=== PATIENT | female | born 1965 | race Caucasian/White ===

== ENCOUNTER → 2019-03-22 15:31 | Outpatient (CLI) | payer OTHER, SELFPAY ==
--- NOTE | ~2019-03-22 | XR_ITS ---
EXAMINATION: XR chest 2V EXAM DATE: 03/22/2019 15:52 INDICATION: Nonproductive cough. TECHNIQUE: Frontal and lateral projections of the chest obtained and reviewed. Comparison is made to prior examination from 10/05/2018. FINDINGS: The lungs are clear. There are no pleural effusions. The cardiomediastinal silhouette is within normal limits. There is no pneumothorax suspected. Patient has diffuse idiopathic skeletal h yperostosis (DISH). There are cholecystectomy clips. IMPRESSION: No acute cardiopulmonary findings. Reviewed, dictated and finalized at location B. 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
== END ==
PROVIDERS: PCP Family Medicine; Visit Provider Family Medicine
DX: J09.X2 Influenza due to identified novel influenza A virus with other respiratory manifestations (principal)
CPT/HCPCS: 71046

== ENCOUNTER 2020-02-23 15:53 | Outpatient (CLI) | payer OTHER, SELFPAY ==
[2020-02-23 16:10] LABS: Basophils Absolute Auto 0.1 K/mm3 (0.0-0.1); Basophils Percent Auto 0.5 % (0.2-1.2); Eosinophils Absolute Auto 0.3 K/mm3 (0-0.3); Hematocrit 39.3 % (37.0-47.0); Hemoglobin 13.2 g/dL (12.0-15.0); Immature Granulocyte Absolute 0.03 K/mm3 (0.00-0.031); Immature Granulocyte Percent A 0.2 % (0-0.5); Lymphocytes Absolute Auto 4.98 K/mm3 (0.9-3.2); Lymphocytes Percent Auto 38.9 % (18.3-44.2); Mean Corpuscular HGB Conc 33.6 g/dl (32-36); Mean Corpuscular Hemoglobin 29.9 pg (26-34); Mean Corpuscular Volume 89.1 fl (80-100); Mean Platelet Volume 9.4 fl (7.4-10.4); Monocytes Absolute Auto 0.7 K/mm3 (0.1-0.6); Monocytes Percent Auto 5.3 % (2.6-8.5); Neutrophils Absolute Auto 6.8 K/mm3 (1.3-6.7); Neutrophils Percent Auto 53.1 % (45.5-73.1); Platelet Count Result 243 k/mm3 (150-375); Red Blood Count 4.41 M/mm3 (4.2-5.4); Red Cell Distribution Width 13.2 % (11.5-14.5); White Blood Count 12.8 K/mm3 (4.5-10.0)
[2020-02-23 16:15] LABS: Atypical Lymphocytes Present; Platelet Estimate Adequate (Adequate)
[2020-02-23 16:39] LABS: Alanine Aminotransferase 17 U/L (4-35); Albumin Level 3.8 g/dL (3.5-5.1); Alkaline Phosphatase 104 U/L (38-126); Anion Gap 5 mmol/L (8-16); Aspartate Amino Transferase 21 U/L (14-36); Bilirubin,Total 0.3 mg/dL (0.2-1.3); Blood Urea Nitrogen 17 mg/dL (7-17); Calcium 8.8 mg/dL (8.4-10.2); Carbon Dioxide 28 mmol/L (22-30); Chloride 102 mmol/L (98-107); Estimated Glomerular Filt Rate 47; Glucose 96 mg/dL (65-105); Lactate Dehydrogenase 406 U/L (313-618); Potassium 4.2 mmol/L (3.4-5.0); Sodium 135 mmol/L (137-145)
== END 2020-02-23 15:54 | disposition home or self-care (01) ==
PROVIDERS: PCP Family Medicine; Visit Provider Internal Medicine Hematology & Oncology
DX: Z80.6 Family history of leukemia (principal); D64.89 Other specified anemias
CPT/HCPCS: 36415; 80053; 83615; 85025

== ENCOUNTER 2020-03-07 15:12 | Outpatient (CLI) | payer OTHER, SELFPAY ==
--- NOTE | ~2020-03-07 | US_ITS ---
EXAMINATION: US carotid duplex BI DATE: 03/07/2020 15:43 INDICATION: Carotid bruit. TECHNIQUE: Grayscale, color Doppler, and pulsed Doppler images of the cervical carotid arteries were obtained. The degree of vessel stenosis is placed in one of the following categories: normal, <50%, 5 0-69%, >=70% but less than near-occlusion, near-occlusion, or total occlusion. Note that percent sten osis relative to normal distal artery lumen diameter is indirectly measured from velocity measurement s as described by Andrés, et al. Radiology 2003; 229:340-346. COMPARISON: None. FINDINGS: RIGHT: The right common carotid artery (CCA) peak systolic velocity (PSV) is 112 cm/s. The right internal ca rotid artery (ICA) PSV is 123 cm/s. The right ICA end-diastolic velocity (EDV) is 56 cm/s. The right ICA/CCA PSV ratio is 1.1. Grayscale and color Doppler images yield an estimate of <50% diameter reduc tion from plaque in the ICA. There is antegrade flow in the right vertebral artery. LEFT: The left CCA PSV is 95 cm/s. The left ICA PSV is 124 cm/s. The left ICA EDV is 42 cm/s. The left ICA/ CCA PSV ratio is 1.3. Grayscale and color Doppler images yield an estimate of <50% diameter reduction from plaque in the ICA. There is antegrade flow in the left vertebral artery. IMPRESSION: 1. <50% stenosis in the right internal carotid artery. 2. <50% stenosis in the left internal carotid artery. Reviewed, dictated and finalized at location A. 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
== END 2020-03-07 15:13 | disposition home or self-care (01) ==
PROVIDERS: PCP Family Medicine; Visit Provider Family Medicine
DX: R09.89 Other specified symptoms and signs involving the circulatory and respiratory systems (principal); I65.23 Occlusion and stenosis of bilateral carotid arteries
CPT/HCPCS: 93880

== ENCOUNTER 2020-03-12 15:38 | Outpatient (CLI) | payer OTHER, SELFPAY ==
--- NOTE | ~2020-03-12 | MM_ITS ---
EXAMINATION: MM screening shira BI w malou HISTORY: Screening mammogram TECHNIQUE: Craniocaudal and mediolateral oblique 3-D tomosynthesis images were obtained and synthetic 2-D images were generated. CAD analysis was submitted and interpreted. COMPARISON: None, baseline BREAST PARENCHYMAL COMPOSITION: There are scattered areas of fibroglandular density. FINDINGS: There is no evidence of suspicious mass, calcification, or architectural distortion to sugg est malignancy in either breast. IMPRESSION: 1. No mammographic evidence of malignancy. 2. Recommend routine screening mammography in one year. BI-RADS Category 1: Negative Reviewed, dictated and finalized at location A. 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
== END 2020-03-12 15:39 | disposition home or self-care (01) ==
LOC: ANHIMG 15:45
PROVIDERS: PCP Family Medicine; Visit Provider Internal Medicine Hematology & Oncology
DX: Z12.31 Encounter for screening mammogram for malignant neoplasm of breast (principal)
CPT/HCPCS: 77063; 77067

== ENCOUNTER 2020-03-13 01:19 | Outpatient (CLI) | payer OTHER, SELFPAY ==
[2020-03-13 19:18] LABS: SARS-CoV-2 RNA PCR Negative
== END 2020-03-13 01:20 | disposition home or self-care (01) ==
LOC: ANHCOVIDDT 01:19
PROVIDERS: PCP Family Medicine; Visit Provider Internal Medicine Gastroenterology
DX: Z01.812 Encounter for preprocedural laboratory examination (principal); Z20.822 Contact with and (suspected) exposure to COVID-19
CPT/HCPCS: C9803; U0003; U0005

== ENCOUNTER 2021-01-04 10:16 | Emergency (ER) | payer OTHER, SELFPAY ==
[2021-01-04 10:23] VITALS: BP 148/82; PULSE 87; RESP 19; TEMP 36.9; O2SAT 99
--- NOTE | 2021-01-04 10:27 | ED.GENADULT ---
HPI - General Adult General Chief complaint: Back Pain/Injury Stated complaint: lower back pain Time Seen by Provider: 01/04/21 10:27 Source: patient Mode of arrival: ambulatory Limitations: no limitations History of Present Illness HPI narrative: 55-year-old female patient presents to the [facility] with complaints of right-sided lower back pain x3 days. Patient states that this past Thursday she was cleaning her house getting ready for Thanksgiving when she felt a pop to her lower back. Patient states she went to go and sit down to rest for little bit and states that when she got up she was having shooting pain down her right leg. Patient states she does have chronic back pain issues and degenerative disc disease. Patient states she did have some leftover Flexeril that she tried to take along with Tylenol and ibuprofen and has been using heat but feels like it is not getting any better. Denies loss of bowel or bladder control. Denies any numbness or tingling down the legs. Patient states that her back pain is better when sitting straight up with pillows behind it. Related Data Home Medications Medication Instructions Recorded Confirmed albuterol sulfate 90 mcg/actuation 1 inhalation INHALATION Q4-6H PRN 04/27/19 01/04/21 breath activated powder inhaler levothyroxine 150 mcg capsule 150 mcg PO DAILY 04/27/19 01/04/21 lisinopril 20 mg tablet 20 mg PO DAILY 04/27/19 01/04/21 Allergies Allergy/AdvReac Type Severity Reaction Status Date / Time amoxicillin Allergy Mild Rash Verified 01/04/21 10:33 Cephalosporins Allergy Mild Unknown Verified 01/04/21 10:33 ciprofloxacin [From Cipro] Allergy Mild Nausea Verified 01/04/21 10:33 codeine Allergy Mild Vomiting Verified 01/04/21 10:33 estradiol [From Femring] Allergy Mild Unknown Verified 01/04/21 10:33 famotidine Allergy Mild Nausea Verified 01/04/21 10:33 pregabalin [From Lyrica] Allergy Mild Unknown Verified 01/04/21 10:33 Penicillins Allergy Unknown unk Verified 01/04/21 10:33 DIAL SOAP Allergy Unknown RASH Uncoded 01/04/21 10:33 Review of Systems Review of Systems: CONSTITUTIONAL: Denies fever, chills, or sweats. EYES: Denies visual changes, redness, or discharge. ENT: Denies rhinorrhea, congestion, sore throat, or otalgia. CARDIOVASCULAR: Denies chest pain, palpitations, or edema. RESPIRATORY: Denies cough or dyspnea. GASTROINTESTINAL: Denies abdominal pain, nausea, vomiting, or diarrhea. GENITOURINARY: Denies dysuria or hematuria. SKIN: Denies rash or itching. MUSCULOSKELETAL: Positive low back pain, denies joint pain, or myalgia. NEUROLOGIC: Denies headache, numbness, or weakness. PSYCHIATRIC: Denies anxiety or depression. [facility] Past Medical History Medical History Acute anxiety Cervical spondylolysis Chronic low back pain Chronic maxillary sinusitis Diplopia Heart murmur Hyperlipidemia Hypothyroidism Lumbar disc disorder Surgical History Surgical History H/O thyroidectomy History of cholecystectomy History of hysterectomy Family History Family History Father Congestive heart failure (CHF) Diabetes mellitus Chronic obstructive lung disease Social History Social History Smoking packs per day: 1.5 Smoking cigarettes per day: 30.0 Years smoked: 30 Smoking pack-years: 45.00 Smoking status: Heavy tobacco smoker Tobacco type: cigarettes Alcohol intake: never Substance use: never Substance use type: does not use Spiritual care concerns: No Comments At the time of my signature I agree with nursing past medical history, surgical, social, and family history. There is no relevant family history pertinent to the presenting complaint. Exam Narrative: GENERAL: Well-appearing, well-nourished, and in no acute distress. HEAD: Normoc
== END 2021-01-04 10:45 | disposition home or self-care (01) ==
PROVIDERS: Emergency Provider Nurse Practitioner Family
DX: M54.31 Sciatica, right side (principal); F17.210 Nicotine dependence, cigarettes, uncomplicated; F41.9 Anxiety disorder, unspecified; M43.02 Spondylolysis, cervical region; R01.1 Cardiac murmur, unspecified; E78.5 Hyperlipidemia, unspecified; E89.0 Postprocedural hypothyroidism
CPT/HCPCS: 99213; G0463

== ENCOUNTER → 2021-01-24 09:22 | Outpatient (CLI) | payer OTHER, SELFPAY ==
--- NOTE | ~2021-01-24 | XR_ITS ---
EXAMINATION: XR shoulder RT min 2V EXAM DATE: 01/24/2021 09:51 INDICATION: pain, decreased mobility right shoulder x 5 weeks. TECHNIQUE: The following right shoulder projections obtained: frontal projection with internal rotati on, frontal projection with external rotation, Grashey, and axillary (4+ views). There is no prior s tudy for comparison. FINDINGS: No evidence of right shoulder rotator cuff calcific tendinosis. There is mild to moderate glenohumeral joint, mild to moderate acromioclavicular joint primary osteoarthritis. There are no ac alatna fractures or dislocations identified. There is no subcutaneous gas. The soft tissue is unremark able. There are no radiopaque foreign bodies. IMPRESSION: Mild to moderate osteoarthritis. Reviewed, dictated and finalized at location B. 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
== END ==
PROVIDERS: PCP Family Medicine; Visit Provider Family Medicine
DX: M19.011 Primary osteoarthritis, right shoulder (principal)
CPT/HCPCS: 73030

== ENCOUNTER 2021-02-04 10:08 | Outpatient (CLI) | payer OTHER, SELFPAY ==
--- NOTE | 2021-02-09 14:06 | WPDHOLTEREM ---
Holter/Event Monitor Holter/Event Monitor Date of procedure: 02/09/21 Holter/Event Procedure: 48 Hr Holter Monitor Diagnosis: Palpitations Indications: UA ramirez palpitations Image/Tracing Quality: Favorable Finding: The basic rhythm is sinus with borderline first-degree AV block. QRS and QT intervals are normal. Heart rate varies from a minimum of 61 to a maximum of 117 with a mean rate of 82. There were no abrupt pauses or abnormalities of AV conduction. The longest RR interval recorded was 1.2 seconds. Supraventricular ectopic activity consisted of infrequent PACs. There was 1 episode of a supraventricular tachycardia that lasted for 7 beats at 5:33 p.m. on the 1st day. This occurred with a wider QRS with right bundle branch block morphology. Upon termination in terminated with very short 1.2nd pause and then a junctional escape beat. No other atrial arrhythmias were seen there was no evidence of atrial fibrillation Ventricular ectopic activity was rare consisting of 4 single PVCs that were seen during the entire 48 hours. Patient submitted a diary which indicates there were apparently no symptoms Conclusion: 48 hour Holter monitor largely unremarkable 1 episode of 7 beats of SVT with right bundle branch block aberrancy noted on the 1st day as described above. Bob Vasquez MD [facility]
== END 2021-02-04 10:09 | disposition home or self-care (01) ==
PROVIDERS: PCP Family Medicine; Visit Provider Family Medicine
DX: R00.2 Palpitations (principal)
CPT/HCPCS: 93225; 93226

== ENCOUNTER → 2021-03-09 00:42 | Outpatient (CLI) | payer OTHER, SELFPAY ==
[2021-03-09 12:26] LABS: SARS-CoV-2 RNA PCR Negative
== END ==
PROVIDERS: PCP Family Medicine; Visit Provider Internal Medicine Gastroenterology
DX: Z01.812 Encounter for preprocedural laboratory examination (principal); Z20.822 Contact with and (suspected) exposure to COVID-19
CPT/HCPCS: C9803; U0003; U0005

== ENCOUNTER 2022-02-28 13:29 | Outpatient (CLI) | payer OTHER, SELFPAY ==
--- NOTE | ~2022-02-28 | CT_ITS ---
EXAMINATION: CT lung screening DATE: 02/28/2022 13:57 INDICATION: HX OF NICOTINE DEPENDENCE TECHNIQUE: Computed tomography (CT) of the chest was performed without intravenous contrast. Addition al 3D reconstructions utilizing coronal maximum intensity projection (MIP) were performed. Automated exposure control and iterative reconstruction technique were employed. The dose-length product was 73 .40 mGy-cm. COMPARISON: None FINDINGS: Mild emphysema. Small linear band of discoid atelectasis in the right middle lobe. Calcified nodule r ight middle lobe along with calcified right hilar and mediastinal lymph nodes consistent with old gra nulomatous disease. No other suspicious pulmonary nodules, pneumonia, pulmonary edema or pleural effu wilmar. Heart size is normal. Atherosclerotic coronary artery calcification. No pericardial effusion. T horacic aorta is normal in caliber. Likely prior right thyroidectomy with surgical clips at the thyro id fossa. 1 cm low-attenuation cyst versus hemangioma in the right hepatic lobe. A couple small calci fied splenic granuloma. There are bridging osteophytes at multiple levels in the spine, consistent wi th diffuse idiopathic skeletal hyperostosis (DISH). IMPRESSION: 1. Lung-RADS category 1: Negative. Continue annual screening with noncontrast low-dose chest CT in 12 months. Reviewed, dictated and finalized at location A. 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 Lung-RADS category 1: Negative. Continue annual screening with noncontrast l ow-dose chest CT in 12 months.
--- NOTE | ~2022-02-28 | US_ITS ---
EXAMINATION: US carotid duplex BI DATE: 02/28/2022 14:18 INDICATION: Carotid artery stenosis TECHNIQUE: Grayscale, color Doppler, and pulsed Doppler images of the cervical carotid arteries were obtained. The degree of vessel stenosis is placed in one of the following categories: normal, <50%, 5 0-69%, >=70% but less than near-occlusion, near-occlusion, or total occlusion. Note that percent sten osis relative to normal distal artery lumen diameter is indirectly measured from velocity measurement s as described by Andrés, et al. Radiology 2003; 229:340-346. COMPARISON: 03/07/2020 carotid duplex examination FINDINGS: RIGHT: The right common carotid artery (CCA) peak systolic velocity (PSV) is 127.2 cm/s. The right internal carotid artery (ICA) PSV is 118.6 cm/s. The right ICA end-diastolic velocity (EDV) is 34.0 cm/s. The right ICA/CCA PSV ratio is 0.9. Grayscale and color Doppler images yield an estimate of less than 50% diameter reduction from plaque in the ICA. The external carotid artery (ECA) PSV is 53.5 cm/s. There is antegrade flow in the right vertebral artery. LEFT: The left CCA PSV is 130.4 cm/s. The left ICA PSV is 151.2 cm/s. The left ICA EDV is 51.0 cm/s. The le ft ICA/CCA PSV ratio is 1.2. Grayscale and color Doppler images yield an estimate of less than 50% di ameter reduction from plaque in the ICA. The ECA PSV is 171.2 cm/s. There is antegrade flow in the le ft vertebral artery. IMPRESSION: 1. Less than 50% stenosis in the right internal carotid artery. 2. Less than 50% stenosis in the left internal carotid artery. Reviewed, dictated and finalized at Location A. Reviewed, dictated and finalized at location B. 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
== END 2022-02-28 13:30 | disposition home or self-care (01) ==
LOC: ANHIMG 13:38
PROVIDERS: PCP Family Medicine
DX: Z12.2 Encounter for screening for malignant neoplasm of respiratory organs (principal); F17.210 Nicotine dependence, cigarettes, uncomplicated; I65.23 Occlusion and stenosis of bilateral carotid arteries
CPT/HCPCS: 71271; 93880

== ENCOUNTER 2022-03-19 12:43 | Outpatient (CLI) | payer OTHER, SELFPAY ==
--- NOTE | 2022-03-19 | ECHO_ITS ---
Patient Info Name: Jenise Escalante Age: 56 years : 1965 Gender: Female Ht: 65 in Wt: 148 lbs BSA: 1.76 m2 HR: 63 bpm BP: 144 / 80 mmHg Heart Rhythm: Sinus Rhythm Exam Date: 03/19/2022 12:57 PM Exam Location: [facility] Patient Status: Outpatient Admit Date: 03/19/2022 Staff Ordering Physician: PHYSICIAN NOT ON STAFF, NONSTAFF Checker And Packer: Satish Cruz, JAVI, RT Attending Provider: PHYSICIAN NOT ON STAFF, NONSTAFF Exam Type: CA echo doppler color flow Study Info Indications - Carotid Bruit Complete two-dimensional, color flow and Doppler transthoracic echocardiogram is performed. Strain analysis performed. Summary 1. Complete two-dimensional, color flow and Doppler transthoracic echocardiogram is performed. 2. Left ventricular chamber dimension is normal. 3. Left ventricular systolic function is normal, estimated at 55-60%. 4. There is mildly increased left ventricular wall thickness. 5. The left ventricular diastolic function is grade I diastolic dysfunction. 6. Right ventricular systolic function is normal. 7. No significant valvular disease. Left Ventricle Left ventricular chamber dimension is normal. Left ventricular systolic function is normal, estimated at 55-60%. There is mildly increased left ventricular wall thickness. The left ventricular diastolic function is grade I diastolic dysfunction. Global longitudinal strain is abnormal at -16 %. Right Ventricle Right ventricular chamber dimension is normal. Right ventricular systolic function is normal. Left Atria Left atrial chamber dimension is normal. Right Atria Right atrial chamber dimension is normal. Atrial Septum Intact interatrial septum visualized by color flow imaging. Aortic Valve The aortic valve is not well visualized. There is no aortic valve stenosis. There is no aortic valve regurgitation. Pulmonic Valve The pulmonic valve is not well visualized. Mitral Valve There is no mitral valve stenosis. There is trace mitral valve regurgitation. Tricuspid Valve There is trace tricuspid valve regurgitation. Pericardium/Pleural There is trivial pericardial effusion. Inferior Vena Cava Normal inferior vena cava with >50% collapse upon inspiration consistent with normal right atrial pressure, 3 mmHg. Aorta The aortic root size at the sinus of Valsalva is normal. Left Ventricular Outflow Tract Name Value Normal LVOT 2D LVOT Diameter 2.0 cm LVOT Doppler LVOT Peak Gradient 3 mmHg LVOT Mean Gradient 1 mmHg LVOT VTI 15 cm LVOT VTI/AV VTI Ratio 0.5 LVOT Stroke Volume 49 ml LVOT CO 4.7 l/min LVOT CI 2.6 l/min/m2 Mitral Valve Name Value Normal MV Doppler
== END 2022-03-19 12:44 | disposition home or self-care (01) ==
LOC: ANHCARD 12:43
PROVIDERS: PCP Family Medicine
DX: R09.89 Other specified symptoms and signs involving the circulatory and respiratory systems (principal); R94.31 Abnormal electrocardiogram [ECG] [EKG]
CPT/HCPCS: 93306

== ENCOUNTER 2023-02-18 07:10 | Outpatient (RCR) | payer OTHER, SELFPAY ==
[2023-01-28 09:43] VITALS: BMI 26.6
--- NOTE | 2023-03-11 07:27 | PCWOUND ---
WOCN NOTE Patient called and left voicemail cancelling appointment for 03/11/23 as her wound to right lower leg is now closed.
== END 2023-04-13 09:17 | disposition home or self-care (01) ==
LOC: ANHWOC 07:10
PROVIDERS: PCP Family Medicine
DX: T24.201D Burn of second degree of unspecified site of right lower limb, except ankle and foot, subsequent encounter (principal)
CPT/HCPCS: 99213; 99214; A9270; G0463

== ENCOUNTER → 2023-06-10 09:22 | Outpatient (CLI) | payer OTHER, SELFPAY ==
--- NOTE | ~2023-06-10 | XR_ITS ---
Lumbosacral Spine: AP and lateral views Clinical History: Pain Findings: The normal lordotic curve is maintained. No fracture or subluxation seen in the lumbar spin e. Possible mild chronic wedging deformities of T8, T9, and T10. The intervertebral disc spaces are preserved. There are mild facet joint degenerative changes in the lumbar spine. DISH noted at the low er thoracic spine. The sacroiliac joints are normally outlined. Impression: No acute abnormality evident. Possible chronic anterior wedging deformities of T8, T9, and T10. Degenerative changes and DISH, as detailed above. Reviewed, dictated and finalized at location M. Impression: No acute abnormality evident. Possible chronic anterior wedging deformities of T8, T9, and T10. Degenerative changes and DISH, as detailed above.
== END ==
LOC: EXPCRAD 09:27
PROVIDERS: PCP Physician Assistant; Visit Provider Physician Assistant
DX: M54.50 Low back pain, unspecified (principal)
CPT/HCPCS: 72100

== ENCOUNTER 2023-08-12 12:26 | Outpatient (RCR) | payer OTHER, SELFPAY ==
--- NOTE | 2023-08-12 13:29 | OPREHPOC ---
Outpatient Therapy Plan of Care This is a Multidisciplinary Plan of Care that may contain components documented by all disciplines (PT, OT, and ST.) PT Problem 1 PT Problem #1 Knowledge Deficit PT Goal 1 Goal *indep with HEP--land and water exercises Target Visit 6 PT Problem 2 PT Problem #2 Pain PT Goal 1 Goal 1* pain rating at worst 5/10 2* Oswestry self rating of 20% limitation in activity 3* pt report walking 30 minute tolerance 4* pt report sleeping awaken due to pain 2x/night Target Visit 6 PT Problem 3 PT Problem #3 Impaired Strength PT Goal 1 Goal increase strength of trunk and hips, to improve stability to spine and positionin* mat strengthening exercises x 15 reps 2* perform 45 minutes of aquatic exercises 3* 2 minute walking test distance of 375' Target Visit 6
--- NOTE | 2023-08-12 13:29 | PTOPEVAL1 ---
Assessment and note entered by Nikole Wyman, PT Evaluation Information Diagnosis low back pain ICD-10 Condition Codes (PT) Pain in low back M54.50 Onset April 2023 Subjective Information chronic back pain, with gradual increase, no trauma or injury to back; xray: chronic wedge of T 8,9,10; mild facet joint degenerative changes-lumbar; previous PT- years ago- helped some, then hurt so bad could not get out of bed for a week had pain injections in back about 10 years ago, did not help; Activity: do not work outside of home; indep with self and light home tasks, frequent breaks due to pain; limited walking 20-30 min; Reported Pain Level Pain Score Self Report Additional Pain Score Comments pain range in the past week 2-09/18; achy R and L: constant in low back & lateral hips; cramps in calves radicular, intermittent into whole leg heavy into both heels; increase pain: moving, walking 20-30 min; bend forward, lifting, stairs and doing laundry decrease pain: sit/rest, tylenol arthritis heat and ice not really help; with sleeping awaken from pain and cramps in calves 3x/night Assessment PT Clinical Summary Shira has the diagnosis of low back pain. Pain is radicular - intermittent into both LE to heels, constant into both lateral hips. She reports issues with chronic back and neck pain. Oswestry self assessment rating of 28% limitation in activity level. Decreased walking, sleeping and activity tolerances due to pain. She does not work outside of the home. With the evaluation: stands with flat lumbar position; standing trunk extension and supine bridging increase pain; supine R hip flexion, IR and hamstring stretch-- increase pain; 2 minute walking test distance of 320' with pain increase from 3 to 6/10. Skilled PT services are indicated on land and in the water, to increase strength of trunk and hips and increase mobility of her hips and trunk, with education for HEP and pain management/control. Due to pain and pain inc
--- NOTE | 2023-08-21 10:28 | PCPTNOTE ---
Pt canceled appt stating she could not make it.
--- NOTE | 2023-09-02 15:34 | PTOPDC ---
Assessment and note entered by Nikole Wyman, PT Discharge Report Assessment Status Discharge - Pt Not Present Diagnosis low back pain ICD-10 Condition Codes (PT) Pain in low back M54.50 Onset April 2023 Subjective Information talked with the pt on the phone: she stated she has too much going on right now to come to therapy. Assessment PT Clinical Summary Jenise has received the PT evaluation. Then called and canceled 2 appointments. I talked with her on the phone today and she wants to cancel remaining appointments. Discussed with her that a new order would be required to return to PT. She stated she understood. Discharge PT per pt request. The goals were not addressed. Plan of Care PT Services Indicated No
== END 2023-09-02 16:24 | disposition home or self-care (01) ==
LOC: ANHPT 12:26
PROVIDERS: PCP Physician Assistant; Visit Provider Physician Assistant
DX: M54.50 Low back pain, unspecified (principal)
CPT/HCPCS: 97161; 97530

== ENCOUNTER 2023-12-19 15:00 | Emergency (ER) | payer OTHER, SELFPAY ==
--- NOTE | 2023-12-19 15:08 | ED.URI ---
HPI - URI/Sore Throat General Chief Complaint: Upper Respiratory Infection Stated Complaint: Sore Throat Time Seen by Provider: 12/19/23 15:31 Source: patient and RN notes reviewed Mode of arrival: ambulatory Limitations: no limitations History of Present Illness HPI Narrative: 58-year-old female with history of COPD, cigarette smoker your presents with concern for persistent cough, nasal drainage, productive cough. Reports cough is painful. Reports left ear pain. Denies fever, aches, chills, sweats. She has been using her albuterol. MD elicited complaint: cough Related Data Home Medications Medication Instructions Recorded Confirmed albuterol sulfate 90 mcg/actuation 1 inhalation inhalation Q4-6H PRN 04/27/19 01/28/23 breath activated powder inhaler Shortness Of Breath amlodipine 5 mg tablet 5 mg PO DAILY 02/27/21 01/28/23 hydroxyzine HCl 25 mg tablet 25 mg PO DAILY 02/27/21 01/28/23 losartan 50 mg tablet 50 mg PO DAILY 02/27/21 02/27/21 aspirin 81 mg tablet 81 mg PO DAILY 01/28/23 01/28/23 atorvastatin 40 mg tablet 40 mg PO DAILY 01/28/23 01/28/23 cholecalciferol (vitamin D3) 25 25 mcg PO DAILY 01/28/23 01/28/23 mcg (1,000 unit) tablet (Vitamin D3) levothyroxine 112 mcg tablet 112 mcg PO DAILY 01/28/23 01/28/23 Allergies Allergy/AdvReac Type Severity Reaction Status Date / Time amoxicillin Allergy Mild Rash Verified 12/19/23 15:13 Cephalosporins Allergy Mild Unknown Verified 12/19/23 15:13 ciprofloxacin [From Cipro] Allergy Mild Nausea Verified 12/19/23 15:13 codeine Allergy Mild Vomiting Verified 12/19/23 15:13 estradiol [From Femring] Allergy Mild Unknown Verified 12/19/23 15:13 famotidine Allergy Mild Nausea Verified 12/19/23 15:13 pregabalin [From Lyrica] Allergy Mild Unknown Verified 12/19/23 15:13 Penicillins Allergy Unknown unk Verified 12/19/23 15:13 DIAL SOAP Allergy Unknown RASH Uncoded 12/19/23 15:13 Review of Systems Review of Systems: CONSTITUTIONAL: Denies malaise, chills, sweats, or fever. EYES: Denies visual changes, redness, or discharge. ENT: Reports rhinorrhea, congestion CARDIOVASCULAR: Denies chest pain, palpitations, or edema. RESPIRATORY: Reports persistent cough. Denies dyspnea. GASTROINTESTINAL: Denies abdominal pain, nausea, vomiting, diarrhea SKIN: Denies rash or itching. MUSCULOSKELETAL: Denies myalgia. NEUROLOGIC: Denies headache. All systems reviewed & are unremarkable except as noted in HPI and below PMFSH Past Medical History Medical History Acute anxiety Cervical spondylolysis Chronic low back pain Chronic maxillary sinusitis Diplopia Heart murmur Hyperlipidemia Hypothyroidism Lumbar disc disorder Surgical History Surgical History H/O thyroidectomy History of cholecystectomy History of hysterectomy Family History Family History Father Congestive heart failure (CHF) Diabetes mellitus Chronic obstructive lung disease Social History Social History Smoking packs per day: 1 Smoking cigarettes per day: 20.0 Years smoked: 30 Smoking pack-years: 30.00 Smoking status: Current every day smoker Tobacco type: cigarettes Alcohol intake: never Substance use: never Substance use type: does not use Living arrangements: with family Spiritual care concerns: No Comments At time of signature, agree with nursing past medical, surgical, social and family history. There is no relevant family history pertinent to the presenting complaint Exam Narrative: GENERAL: Well-appearing, well-nourished, and in no acute distress. HEAD: Normocephalic EYES: PERRLA, conjunctivae clear ENT: Nares clear. Mucous membranes moist. TM pearly hackett with dull light reflex bilaterally; no tragal tenderness. Oropharynx not erythematous without lesions. Tonsils not enlarged and without exudate, no drooling, no hoarseness, no trismus, uvula midline. NECK: Supple. No lymphadenopathy CHEST: Clear to auscultation, breath sounds equal. No wheezing, rhonchi, rales, or stridor. No respiratory distress, speaks in full sentences. HEART: Regular rate and rhythm. No murmur heard. SKIN: Warm, dry, no rash. NEURO: Alert and oriented x3. PSYCH: Normal mood and affect Course Course Emergency Course: Patient is aware of diagnosis, understands and agrees to treatment plan. Anticipatory guidance given. Patient agrees to follow-up as directed and is aware of reasons to seek care at the emergency department. Portions of this record may have been created with voice recognition software Level of Care: Express Care Visit Vital Signs Vital signs: Reviewed. MDM - URI/Sore Throat MDM Narrative Medical decision making narrative: Differential diagnosis considered: Torres virus, strep pharyngitis, allergic rhinitis, upper respiratory tract infection, sinusitis, rhinosinusitis, nasopharyngitis. viral pharyngitis, otitis media, otitis externa, pneumonia, bronchitis, viral cough syndrome, viral syndrome, and influenza. Exam findings show no acute concerns or changes; patient is non-toxic appearing and is in no distress. Patient is appropriate for outpatient treatment and follow-up. Lab Data Attestation: I reviewed the patient's lab results. Critical Care Time Critical Care Time Critical Care Time: No Discharge Plan Discharge Clinical Impression: Acute exacerbation of chronic obstructive pulmonary disease Patient Disposition: Home, Self-Care Condition: Stable Instructions: Antibiotic Form, COPD (Chronic Obstructive Pulmonary Disease) (ED) Additional Instructions: 1) Please follow-up with your primary care doctor in the next 1-2 days. 2) If you have any worsening of symptoms or any other urgent concerns please go to the ER. 3) Please take medications as prescribed and continue taking your home medications as usual. 4) Please read and follow information included in discharge instructions. Prescriptions: New prednisone 20 mg tablet 40 mg PO DAILY 5 Days Qty: 10 0RF doxycycline monohydrate 100 mg tablet 100 mg PO BID 7 Days Qty: 14 0RF No Action naproxen 500 mg tablet 500 mg PO BID PRN (Reason: pain) Qty: 20 0RF albuterol sulfate 90 mcg/actuation aerosol powdr breath activated 1 inhalation INHALATION Q4-6H PRN (Reason: Shortness Of Breath) losartan 50 mg tablet 50 mg PO DAILY amlodipine 5 mg tablet 5 mg PO DAILY hydroxyzine HCl 25 mg tablet 25 mg PO DAILY atorvastatin 40 mg Tablet 40 mg PO DAILY Adult Aspirin 81 mg Tablet 81 mg PO DAILY levothyroxine 112 mcg Tablet 112 mcg PO DAILY cholecalciferol (vitamin D3) [Vitamin D3] 25 mcg (1,000 unit) Tablet 25 mcg PO DAILY Follow-up/Referrals: Brody,JOVANNY Díaz [Primary Care Provider] - Time of Disposition: 15:41
[2023-12-19 15:09] VITALS: BP 149/66; PULSE 85; RESP 18; TEMP 36.7; O2SAT 99
[2023-12-19 15:14] VITALS: BP 149/66; PULSE 85; RESP 18; TEMP 36.7; O2SAT 99
[2023-12-19 15:51] LABS: EDINFLUASCREEN Negative (Negative); EDINFLUBSCREEN Negative (Negative)
== END 2023-12-19 15:45 | disposition home or self-care (01) ==
PROVIDERS: Emergency Provider Nurse Practitioner; PCP Physician Assistant
DX: J44.1 Chronic obstructive pulmonary disease with (acute) exacerbation (principal); F17.210 Nicotine dependence, cigarettes, uncomplicated; R01.1 Cardiac murmur, unspecified; E78.5 Hyperlipidemia, unspecified; E89.0 Postprocedural hypothyroidism; F41.9 Anxiety disorder, unspecified; M47.812 Spondylosis without myelopathy or radiculopathy, cervical region
CPT/HCPCS: 87804; 99213; G0463

== ENCOUNTER 2024-09-26 10:53 | Outpatient (CLI) | payer OTHER, SELFPAY ==
--- NOTE | ~2024-09-26 | XR_ITS ---
EXAM/ PROCEDURE: XR knee RT 3V - 09/26/2024 11:13 CDT HISTORY: 58 years old Female with Acute pain in rt knee COMPARISON: None available TECHNIQUE: Three view(s) FINDINGS/ IMPRESSION: There are no fractures or dislocations.Joint space narrowing, subchondral sclerosis, subchondral cyst formation and osteophyte formation, compatible with mild osteoarthritis. Joint effusion seen. Reviewed, dictated and finalized at location A.
--- NOTE | ~2024-09-26 | CT_ITS ---
CT Scan of the Chest without Contrast: Clinical Indication: Lung cancer screening, nicotine dependence Technique: Contiguous sections were acquired throughout the chest without intravenous contrast. Dose reduction technique was used on this scan by utilizing automated exposure control and iterative recon struction technique. The dose-length product (DLP) was 90.28 mGy-cm. COMPARISON: 02/28/2022 Findings: There is no evidence of any significant mediastinal, hilar or axillary lymphadenopathy. The mediastin al soft tissues appear normal. There is no evidence of pleural or pericardial effusion. The lungs are clear, aside from linear left upper lobe scarring. Images through the upper abdomen reveal no abnormalities. Impression: Lung RADS 1: Negative. 12 month follow-up screening CT advised. Reviewed, dictated and finalized at location . Impression: Lung RADS 1: Negative. 12 month follow-up screening CT advised.
--- OUTSIDE RECORDS SUMMARY | 2024-09-26 11:59 | XMS_ITS | Clinical Summary ---
Author Organization [facility] [place] [facility] Address [address] [place] [id number] Care Team Providers Care Him Manager Name Role Phone Yanique Carranza NP Primary Care Provider [phone] Allergies Active Allergy Reactions Criticality Noted Date Comments Acetaminophen-Codeine Nausea And Vomiting Low 04/14 Codeine Stomach upset Low 04/01/2012 Stomach/GI Upset Famotidine Nausea And Vomiting Low 04/14/2012 Latex Itching Low 04/01/2012 Itching Penicillins Other (See comments),Rash Medium 04/01/2012 Itching Whole body warm and rash Pregabalin Nausea And Vomiting,Stomach upset Low 04/01/2012 Stomach/GI Upset Medications levothyroxine (SYNTHROID) 125 mcg tablet 02/17/2022 Active amLODIPine (NORVASC) 5 mg tablet 03/27/2022 Active cholecalciferol (VITAMIN D-3) 2000 unit capsule Take 2,000 Units by mouth daily Active nicotine (NICODERM CQ) [address] 1 patch on the skin daily 30 patch 3 04/25/2022 Active atorvastatin (LIPITOR) 40 mg tablet Take 1 tablet (40 mg total) by mouth daily 90 tablet 3 04/25/2022 Active Active Problems Problem Noted Date Diagnosed Date Lipid screening 04/25/2022 Hyperlipidemia 04/25/2022 Calcification of coronary artery 04/25/2022 Tobacco dependence 04/25/2022 Hypertension 04/25/2022 Medical History Medical History Date Comments Hypertension Family History Medical History Relation Name Comments Heart disease Brother Hyperlipidemia Brother Hypertension Brother Diabetes Father Heart disease Father Hyperlipidemia Father Hypertension Father Hyperlipidemia Mother Hypertension Mother Stroke Mother Heart disease Sister Hyperlipidemia Sister Hypertension Sister Relation Name Status Comments Brother Father Mother Sister Social History Tobacco Use Types Packs/Day Years Used Date Smoking Tobacco: Every Day Cigarettes Smokeless Tobacco: Never Personal Safety Answer Date Recorded Getting School Help Needed Not on file 04/05 Comments Unknown Sex and Gender Information Value Date Recorded Sex Assigned at Not on file Legal Sex Female 4:54 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 Gender Identity Not on file Sexual Orientation Not on file Obstetrics History Last Filed Vital Signs Vital Sign Reading Time Taken Comments Blood Pressure 136/70 04/25/2022 2:10 PM CDT Pulse 80 04/25/2022 2:10 PM CDT Temperature 36.6 C (97.9 F) 04/01/2012 11:19 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 Respiratory Rate - - Oxygen Saturation 96% 04/25/2022 2:10 PM CDT Inhaled Oxygen Concentration - - Weight 72.6 kg (160 lb) 04/25/2022 2:10 PM CDT Height 162.6 cm (5' 4) 04/25/2022 2:10 PM CDT Body Mass Index 27.46 04/25/2022 2:10 PM CDT Plan of Treatment Health Maintenance Due Date Last Done Comments Breast Cancer Screening-Mammogram 1966 Cervical Cancer Screening 1966 Colon Cancer Screening-Colonoscopy 1966 Depression Screening 1966 Hepatitis C Screening 1966 Hepatitis B Screening 1984 Regular Well Visit/Exam 18-64 1984 Pneumococcal vaccine <65 (1 of 2 - PCV) 1985 Zoster Vaccine (1 of 2) 2016 DTaP/Tdap/Td Vaccine (2 - Td or Tdap) 12/06/2022 Influenza Vaccine (#1) 2024 Insurance [facility] Care Teams Him Manager Relationship Specialty Start Date End Date Yanique Carranza NP PCP - General Nurse Practitioner 01/30/21
--- OUTSIDE RECORDS SUMMARY | 2024-09-26 12:00 | XMS_ITS | Clinical Summary ---
Author Organization [facility] Address [address] [address] Care Team Providers Care Drop Wire Aliner Name Role Phone Provider, Abstract Primary Care Provider Unavail able Allergies Active Allergy Reactions Criticality Noted Date Comments Acetaminophen-Codeine Nausea and Vomiting Low 04/14 Amoxicillin Trihydrate Other (See Comments) 07/2012 Famotidine Nausea and Vomiting Low 04/14/2012 Medications atorvastatin (LIPITOR) 40 mg tablet 03/14/2020 Active ALPRAZolam (XANAX) 0.5 mg tablet Active cyclobenzaprine (FLEXERIL) 10 mg tablet 02/24/2020 Active Flovent HFA 44 mcg/actuation HFA Aerosol Inhaler 02/29/2020 Act reilly levothyroxine 150 mcg tablet 02/16/2020 Active lisinopriL (PRINIVIL) 20 mg tablet 02/16/2020 Active promethazine-dextr omethorphan (PHENERGAN-DM) 6.25-15 mg/5 mL syrup 02/24/2020 Active Active Problems Problem Noted Date Diagnosed Date Leukocytosis (leucocytosis) 03/19/2020 Family history of leukemia 02/23/2020 Family History Relation Name Status Comments Father Mother Alive Son 1 Alive Son 2 Alive Son 3 Alive Social History Tobacco Use Types Packs/Day Years Used Date Smoking Tobacco: Every Day Cigarettes 1.5 25 Smokeless Tobacco: Never Alcohol Use Standard Drinks/Week Comments Never 0 (1 standard drink = 0.6 oz pur e alcohol) Comments Unknown Sex and Gender Information Value Date Recorded Sex Assigned at Not on file Legal Sex Female 2:50 PM MANAGER FINANCIAL SYSTEMS Gender Identity Not on file Sexual Orientation Not on file Last Filed Vital Signs Vital Sign Reading Time Taken Comments Blood Pressure 159/93 03/19/2020 2:55 PM MANAGER FINANCIAL SYSTEMS Pulse 80 03/19/2020 2:55 PM MANAGER [employer]ANCIAL SYSTEMS Temperature 36.7 C (98.1 F) 03/19/2020 2:55 PM MANAGER [employer]ANCIAL SYSTEMS Respiratory Rate - - Oxygen Saturation 97% 03/19/2020 2:55 PM MANAGER FINANCIAL SYSTEMS Inhaled Oxygen Concentration - - Weight 73.7 kg (162 lb 6.4 oz) 03/19/2020 2:55 P M MANAGER [employer]CIAL SYSTEMS Height 163.8 cm (5' 4.5) 03/19/2020 2:55 PM MANAGER FINANCIAL SYSTEMS Body Mass Index 27.45 03/19/2020 2:55 PM MANAGER FINANCIAL SYSTEMS Plan of Treatment Health Maintenance Due Date Last Done Comments DTAP/TDAP/TD VACCINES (1 - Tdap) 1985 HEPATITIS B VACCINES (1 of 3 - 19+ 3-dose series) 10/12 HPV/Cotest (21-29) 11/09/1987 CERVICAL CANCER SCREENING 1996 HPV/Cotest (30-65) 1996 PAP SMEAR 1996 COLORECTAL SCREENING 11/09/2011 Colorectal Cancer Screening 11/09/2011 FIT-DNA Q 3 years 11/09/2011 FIT/FOBT Q 1 year 11/09/2011 Flex Sig/CT Colonography Q 5 years 11/09/2011 ZOSTER VACCINE (1 of 2) 2016 BREAST CANCER SCREENING 03/12/2021 03/12/2020 INFLUENZA VACCINE (#1) 2024 Procedures Procedure Name Priority Date/Time Associated Diagnosis Comments MAMMO SCREEN BILAT W OR WO CAD Routine 03/12/2020 Visit for screening mammogram from Last 3 Months or Most Recently Relevant to Health Maintenance Results * MAMMO SCREEN BILAT W OR WO CAD (03/12/2020) Anatomical Region Laterality Modality Breast Bilateral Mammography Dino Cho MD MAMMO ORDERABLES Final Result from Last 3 Months or Most Recently Relevant to Health Maintenance Care Teams Drop Wire Aliner Relationship Specialty Start Date End Date Provider, Abstract NO ADDRESS ON FILE PCP - General 02/23/20
--- OUTSIDE RECORDS SUMMARY | 2024-09-26 12:00 | XMS_ITS | Clinical Summary ---
Author Organization [facility] [employer] Address [address] [place] [address] Support Name Relationship Address Phone Bob Escalante Spouse Unknown [phone] Gianni Recio Son Unknown [phone] Niki Hemal Personal Relationship [address] [place] [address] Gianni Hemal Personal Relationship [address] [place] [address] Care Team Providers Care Utility Tech Name Role Phone Hermila Tomas MD Primary Care Provider [phone] Source Comments [facility],non-owned Affiliates and Associated Physician Practices is amultiple site organization consisting of ambulatory clinics and hospital sitesin [place], [place] and [place]. This disclosure is being madepursuant to the Care Everywhere program and may not contain all information available regarding this patient. Last updated 17.[facility] [employer] Allergies Active Allergy Reactions Criticality Noted Date Comments Acetaminophen-Codeine Nausea and/or Vomiting Low 04/14/2012 Amoxicillin Trihydrate 04/14/2012 Codeine GI Discomfort Low 04/01/2012 Stomach/GI Upset Famotidine 04/14/2012 Latex Itching Low 04/01/2012 Itching Penicillins Other,Rash Medium 04/14/2012 Whole body warm and rash Pregabalin Nausea and/or Vomiting Low 04/06/2015 Acetaminophen-Codeine 04/14/2012 Medications * Be aware that medications may not be up to date on this document. Alwaysverify current medications with the patient. amLODIPine (NORVASC) 2.5 MG tablet Take 2.5 mg by mouth once daily Active albuterol HFA (PROVENTIL; VENTOLIN; PROAIR) 108 (90 Base) MCG/ACT inhaler Inhale 2 puffs by mouth every 6 hours as needed 1 Active cyclobenzaprine (FLEXERIL) 10 MG tablet Take 10 mg by mouth as directed 1 Active hydrOXYzine HCl (ATARAX) 25 MG tablet Take 25 mg by mouth as directed 2 Active levothyroxine (SYNTHROID) 150 MCG tablet Take 1 (one) tablet by mouth daily before breakfast 1 Active fluticasone hfa 110 (FLOVENT HFA 110) 110 MCG/ACT inhaler Inhale 2 puffs by mouth once daily Active ibuprofen (MOTRIN) 800 MG tablet Take 1 (one) tablet by mouth every 6 hours as needed for Pain 30 tablet 2 Active Additional Information Patient not taking.Reported on 09/27/2021 atorvastatin (Lipitor) 40 MG tablet 3 Active Cholecalciferol 50 MCG (2000 UT) Take 2,000 Units by mouth once daily Active meloxicam (Mobic) 15 MG tablet Take 1 (one) tablet by mouth once daily 30 tablet 2 3 Active Active Problems Problem Noted Date Diagnosed Date Olecranon bursitis of left elbow 06/20/2022 Osteophyte of olecranon process 06/20/2022 Tendinitis of right rotator cuff 03/08/2021 Leukocytosis (leucocytosis) 03/19/2020 Family history of leukemia 02/23/2020 Cyst, eyelid, unspecified laterality 04/06/2015 Neoplasm of uncertain behavior of skin 6 Degeneration of lumbar or lumbosacral interverte bral disc 04/16/2012 Low back pain 04/14/2012 Disorder of thyroid 04/14/2012 Lesion of bladder Social History Tobacco Use Types Packs/Day Years Used Date Smoking Tobacco: Every Day Cigarettes Smokeless Tobacco: Never Alcohol Use Standard Drinks/Week Comments Never 0 (1 standard drink = 0.6 oz pur e alcohol) Comments No Sex and Gender Information Value Date Recorded Sex Assigned at Not on file Legal Sex Female 11:21 AM NANNY BABYSITTER Gender Identity Not on file Sexual Orientation Straight 05/23/2021 6: 16 PM CDT Last Filed Vital Signs Vital Sign Reading Time Taken Comments Blood Pressure 134/79 09/27/2021 10:34 AM CDT Pulse 54 09/27/2021 10:34 AM CDT Temperature 36.4 C (97.5 F) 09/27/2021 10:34 AM CDT Respiratory Rate 15 06/06/2021 2:30 PM CDT Oxygen Saturation 95% 09/27/2021 10:34 AM CDT Inhaled Oxygen Concentration - - Weight 67.1 kg (148 lb) 06/20/2022 1:14 PM CDT Height 162.6 cm (5' 4) 06/20/2022 1:14 PM CDT Body Mass Index 25.4 06/20/2022 1:14 PM CDT Plan of Treatment Health Maintenance Due Date Last Done Comments COLOGUARD (AGES 45-75) - COL ON CA SCREENING 1966 COLON MONITORING 1966 COLONOSCOPY - COLON CA SCREENING 1966 CT COLONOGRAPHY - COLON CA SCREENING 1966 Colorectal Cancer Screening 1966 FIT - COLON CA SCREENING 1966 FLEX SIG - COLON CA SCREENING 1966 MAMMOGRAM 1966 HIV SCREENING 1981 HEPATITIS C SCREENING 11/03/1984 DTAP/TDAP/TD VACCINES (1 - Tdap) 1985 HEPATITIS B VACCINE (1 of 3 - 19+ 3-dose series) 1985 PNEUMOCOCCAL VACCINE 50+ (1 of 2 - PCV) 1985 PAP SMEAR 11/09/1987 ZOSTER VACCINE (1 of 2) 2016 COVID-19 VACCINE (2023-2 5 season) 2023 DEPRESSION SCREENING 02/10/2024 INFLUENZA VACCINE (#1) 2024 SCREENING FOR DIABETES 04/25/2025 3, 05/30/2021 HIB VACCINE Aged Out No longer eligi ble based on patient's age to complete this topic HPV VACCINE Aged Out No longer eligi ble based on patient's age to complete this topic MENINGOCOCCAL (Group B) VACCINE SHARED DECISION-MAKING Aged Out No longer eligible based on patient's age to complete this topic MENINGOCOCCAL GROUPS A/C/Y/W VACCINE Aged Out No longer eligible b ased on patient's age to complete this topic Procedures Procedure Name Priority Date/Time Associated Diagnosis Comments BASIC METABOLIC PANEL (CALCIUM TOTAL) Routine 05/30/2021 1:08 PM CDT Lesion of bladder Pre-op testing from Last 3 Months or Most Recently Relevant to Health Maintenance Results * (ABNORMAL) BASIC METABOLIC PANEL (CALCIUM TOTAL) (05/30/2021 1:08 PM CDT) BUN 11 7 - 26 mg/dL 05/30/2021 2:17 PM [facility] Creatinine 1.10(H) 0.56 - 0.96 mg/dL 05/30/2021 2:17 PM [facility] Sodium 141 136 - 145 mmol/L 05/30/2021 2:17 PM [facility] Potassium 4.2 3.5 - 4.5 mmol/L 05/30/2021 2:17 PM [facility] Chloride 103 98 - 107 mmol/L 05/30/2021 2:17 PM [facility] CO2 24 22 - 29 mmol/L 05/30/2021 2:17 PM [facility] Glucose 89 70 - 115 mg/dL 05/30/2021 2:17 PM [facility] Calcium 9.5 8.4 - 10.2 mg/dL 05/30/2021 2:17 PM [facility] Anion Gap 18 8 - 18 05/30/2021 2:17 PM [facility] BUN/Creatinine Ratio 10 7 - 23 05/30/2021 2:17 PM [facility] Osmolality Calculated 291 270 - 300 mOsm/kg 05/30/2021 2:17 PM [facility] eGFR by CKD-EPI 60(L) >=90 mL/min/1.7 3 m2 05/30/2021 2:17 PM [facility] Blood BLOOD SPECIMEN / Unknown Lab Venipuncture / Unknown 05/30/2021 1:08 PM CDT 05/30/2021 1:49 PM CDT us William Boyer MD LAB - CHEMISTRY ORDERABLES Final Result [facility] [address] [place] [address], [facility] [phone] from Last 3 Months or Most Recently Relevant to Health Maintenance Insurance [facility] Care Teams Utility Tech Relationship Specialty Start Date End Date Hermila Tomas MD [address] [place] [address] PCP - General 05/10/21
== END 2024-09-26 10:54 | disposition home or self-care (01) ==
LOC: ANHIMG 10:58
PROVIDERS: PCP Physician Assistant; Visit Provider Physician Assistant
DX: Z12.2 Encounter for screening for malignant neoplasm of respiratory organs (principal); Z87.891 Personal history of nicotine dependence; M25.461 Effusion, right knee
CPT/HCPCS: 71271; 73562